=== PATIENT | female | born 1950 | race Caucasian/White ===

== ENCOUNTER 2018-01-31 08:41 | Inpatient (IN) ==
--- NOTE | 2018-01-31 08:36 | Discharge Summary ---
<Karl Stallworth - Last Filed: 01/31/18 10:09> Orders not resulted at time of discharge: Pending orders 01/31/18 00:01 XR knee RT 1-2V [XR] Routine H/H [Hemoglobin and Hematocrit] [HEME] Routine 01/31/18 07:49 US anesthesia pain block [US] Routine Date of Encounter: 01/31/18 - Hospital Course Hospital course: Ms. Prescott is a 68 year old female - Time Spent with Patient Total time spent providing and/or coordinating discharge services: - Discharge Medications Prescriptions: Acetaminophen w/Cod 300-30 mg [Tylenol w/Codeine #3] 1 each PO Q8HR 7 Days #21 tablet Aspirin Enteric Coated [Aspirin EC] 325 mg PO BID #20 tablet. Home Medications: Atorvastatin [Lipitor] 40 mg PO HS 11/25/15 [History] Furosemide [Lasix] 40 mg PO DAILY 11/25/15 [History] Lisinopril [Zestril] 20 mg PO BID 11/25/15 [History] Potassium Chloride [Klor-Con Sprinkle] 20 meq PO BID 11/25/15 [History] metFORMIN [Glucophage] 500 mg PO DAILY 11/25/15 [History] Multivit-Min/Iron/Folic/Lutein [Centrum Silver Women Tablet] 1 each PO DAILY [History] Vit C/E/Zn/Coppr/Lutein/Zeaxan [Preservision Areds 2 Softgel] 1 each PO BID [History] Aspirin Enteric Coated [Aspirin EC] 325 mg PO BID #20 tablet. 01/31/18 [Rx] Furosemide [Lasix] 20 mg PO DAILY 01/31/18 [History] Acetaminophen w/Cod 300-30 mg [Tylenol w/Codeine #3] 1 each PO Q8HR 7 Days #21 tablet 02/01/18 [Rx] Allergies/Adverse Reactions: 3 Allergy/AdvReac Type Severity Reaction Status Date / Time Sulfa (Sulfonamide Allergy Intermediate Difficulty Verified 01/31/18 09:22 Antibiotics) Breathing morphine Allergy Hives Verified 01/31/18 09:22 pentazocine [From Talwin] Allergy See Verified 01/31/18 09:22 Comments prednisone Allergy See Verified 01/31/18 09:22 Comments propoxyphene Allergy Gastrointestinal Verified 01/31/18 09:22 [From Darvocet-N] Upset sulfamethoxazole Allergy See Verified 01/31/18 09:22 [From Bactrim] Comments trimethoprim [From Bactrim] Allergy See Verified 01/31/18 09:22 Comments Primary care physician: Carmelo Poole MD - Patient Status Disposition: Home Health Service Condition: Good - Discharge Instructions Follow Up With: Carmelo Poole MD [Primary Care Provider] - Additional Instructions: Discharge Instructions: Total Knee Replacement Please call [facility] ([phone]), your Primary Care Physician, or report to the Emergency Room if you have any of the following symptoms: Nausea, vomiting, fever greater that 101.5, swelling, chest pain, shortness of breath, increased pain/redness/drainage/odor for your incision site, numbness/ tingling, or any other concerning symptoms. ACTIVITY:Weight-bearing as tolerated. You may progress off support (crutches or walker) as tolerated. Incentive Spirometer 10 times an hour. MEDICATIONS: Upon discharge resume your home medications. Take all the medications as prescribed. Take a stool softener if taking narcotic pain medications. Stool softeners are only effective if you drink enough fluids. Drink 6-8 glass of water or fluids a day, unless this is not allowed for another health problem. Despite using stool softeners, if you haven't had a bowel movement in 3 days, please switch to a gentle laxative. Gentle laxatives are sold over the counter. You should have a bowel movement within 24 hours, if not call the office. You will be discharged from the hospital with a prescription for pain medication. You are encouraged to decrease the use of narcotic pain medication as tolerated. Should you require a refill, please call the office. [facility] prescribes narcotic pain medication for only 4-6 weeks after surgery. If you require pain medication beyond this time period, you may be referred to your Primary Care Physician or to the Pain Clinic for further evaluation. Plan ahead for refills on pain medication as many narcotics either need to be picked up at the office or mailed. It is best to call 48-72 hours in advance of needing a prescription refill so you don't run out of medication. To help control the post-operative pain, you may take NSAIDs (Aleve,Advil, Motrin, Ibuprofen, Naprosyn) or Tylenol as prescribed on the bottle in addition to the pain medication. ANTICOAGULATION (blood thinners): Continue your Aspirin, Lovenox or Coumadin as prescribed to help prevent a blood clot in the leg or in the lungs. As long as your incision remains dry and you tolerate the NSAIDs (Aleve, Advil, Motrin, ibuprofen, naprosyn), it is OK to use the NSAIDS while you are taking your anticoagulation medication. Should your incision start to drain, stop the NSAID and contact our office. Common symptoms of blood clot in the legs include: localized pain, swelling, calf tenderness, redness or discoloration of the skin. Blood clot in the lung symptoms include: shortness of breath, rapid pulse, sweating, and chest pain that worsens with deep breathing, coughing up blood, lightheadedness, feelings of anxiety. If you experience any of these symptoms notify your physician immediately, go to the emergency room, or if having trouble breathing, call 911. WOUND CARE: Leave the dressing on for 7 to 10days. You may change the dressing if it becomes saturated greater than 50%. Do not get the dressing wet at anytime. Wash your hands with antibacterial soap, rinse and dry prior to any wound care. If you have paulette the visiting nurse or rehab facility can remove the stapes 10-14 days after surgery and place steri-strips across the wound. Leave the steri-strips in place until they fall off on their won. You may let water from the shower run on top of the steri-strips. If you do not have a visiting nurse or rehab facility, you will need to return to the office at 10-14 days for the paulette to be removed. If you have itching or redness around the dressing call the office. FOLLOW-UP: Please follow up with your surgeon in the orthopedic clinic in 4 weeks from the day of surgery. If you have paulette that need to be removed, you will need to come back to the office in 10-14 days from the day of surgery. <Bhavani Lopez - Last Filed: 02/01/18 17:00> - NOTES TO OUTPATIENT PROVIDER Notes to Outpatient Provider: Acute blood loss anemia - follow up CBC Orders not resulted at time of discharge: Pending orders 01/31/18 00:01 XR knee RT 1-2V [XR] Routine H/H [Hemoglobin and Hematocrit] [HEME] Routine 01/31/18 07:49 US anesthesia pain block [US] Routine Date of Encounter: 02/01/18 Time of Encounter: 16:35 - Discharge Diagnosis (1) Status post total knee replacement, right Priority: Primary Status: Acute Comments: Opsite dressing, leave intact until first post-operative visit. If dressing becomes >50% saturated, contact office, remove dressing and place appropriate dressing in its place. Do not allow for dressing to get wet. Zipline in place, plan to remove at post-operative day #14-16. Total Joint Precautions x 6 weeks Apply cold therapy wrap 3-6x/day for 20 minutes at a time. Encourage ambulation throughout the day Use Incentive spirometer 10x/hour. Elevate affected extremity above heart as tolerated. Brace: Wear knee immobilizer at night until first post-operative appt. ~ (2) Arthritis of knee, right Priority: Primary Status: Acute (3) HTN (hypertension) Priority: Secondary Status: Chronic Qualifiers: Hypertension type: essential hypertension Qualified Code(s): I10 - Essential (primary) hypertension (4) DMII (diabetes mellitus, type 2) Priority: Secondary Status: Chronic Qualifiers: Diabetes mellitus terminal operations manager insulin use: unspecified custodial insulin use status Diabetes mellitus complication status: with unspecified complications Qualified Code(s): E11.8 - Type 2 diabetes mellitus with unspecified complications (5) Acute blood loss anemia Priority: Primary Status: Acute - Hospital Course Hospital course: Ms. Prescott is a 68 year old female tatus pos R TKR 01/31 . Patient had uneventful postoperative course. Stable for discharge. Patient seen at bedside, without complaints. A&O x 3 Afebrile, vital signs stable. Vital Signs Temp Pulse Resp BP Pulse Ox 02/01/18 11:54 97.5 F L 68 16 147/67 100 02/01/18 07:51 97.9 F 87 12 120/72 95 02/01/18 03:29 97.9 F 68 17 113/67 94 02/01/18 00:51 98.4 F 81 20 135/95 100 01/31/18 20:15 97.7 F 72 17 133/70 100 01/31/18 16:50 97.5 F L 69 124/76 98 Intake and Output 02/01/18 02/01/18 02/01/18 07:59 15:59 23:59 Intake Total 240 / 240 Balance 240 / 240 Intake: Oral 240 / 240 Other: Meal Lunch Percent of Meal Consumed 100% # Voids 1 1 Blood Glucose* 227 205 Labs reviewed. H/H - stable, asymptomatic - acute blood loss anemia Short CBC 02/01/18 Range/Units 00:42 Hgb 9.4 L (11.5-15.4) g/dL Hct 27.3 L (35.3-44.9) % BMP 02/01/18 Range/Units 00:42 Sodium 137 (136-145) mEq/L Potassium 3.9 (3.5-5.1) mEq/L Chloride 105 (98-107) mEq/L Carbon Dioxide 23 (23-29) mEq/L BUN 17 (8-23) mg/dL Creatinine 0.72 (0.60-1.20) mg/dL Glucose 274 H (70-105) mg/dL Calcium 8.4 L (8.6-10.3) mg/dL Pain control: adequate - She does not wish to D/C on pain medication. Deya with codeine sent Participating in PT. All questions and concerns addressed. Educated on use of incentive spirometer. Encouraged ambulation and proper hydration. Patient educated on post-operative restrictions and post-operative care. Assessment and plan: Continue with postoperative care Discharge plan: Home with , discharge today. - Time Spent with Patient Total time spent providing and/or coordinating discharge services: Date of admission: 01/31 Primary care physician: Carmelo Poole MD Discharging clinician: Bhavani Lopez Anticipated date of discharge: 02/01/18 - Patient Status Functional capacity at discharge: uses cane/walker Overall status at discharge: patient is progressing back to baseline
--- NOTE | 2018-01-31 08:40 | Anesthesia Evaluation PreOp ---
Date of Encounter: 01/31/18 Time of Encounter: 10:03 - Past History Planned Operation: RIGHT TKA ROBOTIC Cardiac History: HTN, Hyperlipidemia, Other (LE EDEMA) Pulmonary History: Denies Any Significant HX MANAGER CONTROL History: Denies Any Significant HX Other Medical History: Other (OBESITY, BMI 34, MACULAR DEGENRATION) Anesthesia History: Past Anesthesia, Problems (PONV) Alcohol Use: none Drug use: none Medications and Allergies Atorvastatin [Lipitor] 40 mg PO HS 11/25/15 [History] Furosemide [Lasix] 40 mg PO DAILY 11/25/15 [History] Lisinopril [Zestril] 20 mg PO BID 11/25/15 [History] Potassium Chloride [Klor-Con Sprinkle] 20 meq PO BID 11/25/15 [History] metFORMIN [Glucophage] 500 mg PO DAILY 11/25/15 [History] Aspirin [Lo-Dose Aspirin EC] 81 mg PO DAILY 12/09/16 [History] Multivit-Min/Iron/Folic/Lutein [Centrum Silver Women Tablet] 1 each PO DAILY [History] Vit C/E/Zn/Coppr/Lutein/Zeaxan [Preservision Areds 2 Softgel] 1 each PO BID [History] Furosemide [Lasix] 20 mg PO DAILY 01/31/18 [History] 3 Allergy/AdvReac Type Severity Reaction Status Date / Time Sulfa (Sulfonamide Allergy Intermediate Difficulty Verified 01/31/18 09:22 Antibiotics) Breathing morphine Allergy Hives Verified 01/31/18 09:22 pentazocine [From Talwin] Allergy See Verified 01/31/18 09:22 Comments prednisone Allergy See Verified 01/31/18 09:22 Comments propoxyphene Allergy Gastrointestinal Verified 01/31/18 09:22 [From Darvocet-N] Upset sulfamethoxazole Allergy See Verified 01/31/18 09:22 [From Bactrim] Comments trimethoprim [From Bactrim] Allergy See Verified 01/31/18 09:22 Comments - Meds/Allergy Pre-op Review Medications Reviewed: Yes Allergies Reviewed: Yes Beta Blockers on Current Med List: No Anesthesia Results - Labs Laboratory Last Values WBC 7.4 K/mcL (4.3-11.1) 01/24/18 10:02 RBC 4.72 M/mcL (3.82-4.97) 01/24/18 10:02 Hgb 13.5 g/dL (11.5-15.4) 01/24/18 10:02 Hct 42.0 % (35.3-44.9) 01/24/18 10:02 MCV 89.0 fL (83.0-100.0) 01/24/18 10:02 MCH 28.6 pg (28.0-33.3) 01/24/18 10:02 MCHC 32.1 g/dL (31.6-35.5) 01/24/18 10:02 RDW 12.0 % (11.5-14.5) 01/24/18 10:02 Plt Count 257 K/mcL (140-400) 01/24/18 10:02 MPV 9.8 fL (9.4-12.4) 01/24/18 10:02 Immature Gran % 0.3 % (0-4) 01/24/18 10:02 Seg Neutrophils % 62.8 % 01/24/18 10:02 Lymphocytes % 26.6 % 01/24/18 10:02 Monocytes % 6.9 % 01/24/18 10:02 Eosinophils % 2.3 % 01/24/18 10:02 Basophils % 1.1 % 01/24/18 10:02 Neutrophils # 4.6 K/mcL (1.6-8.9) 01/24/18 10:02 Lymphocytes # 2.0 K/mcL (0.6-4.6) 01/24/18 10:02 Monocytes # 0.5 K/mcL (0.0-1.3) 01/24/18 10:02 Eosinophils # 0.2 K/mcL (0.0-0.6) 01/24/18 10:02 Basophils # 0.1 K/mcL (0.0-0.2) 01/24/18 10:02 PT 11.2 Seconds (9.4-12.1) 01/24/18 10:02 INR 1.0 01/24/18 10:02 APTT 31.7 Seconds (26.0-36.0) 01/24/18 10:02 Sodium 137 mEq/L (136-145) 01/24/18 10:02 Potassium 4.4 mEq/L (3.5-5.1) 01/24/18 10:02 Chloride 101 mEq/L (98-107) 01/24/18 10:02 Carbon Dioxide 30 mEq/L (23-29) H 01/24/18 10:02 BUN 16 mg/dL (8-23) 01/24/18 10:02 Creatinine 0.76 mg/dL (0.60-1.20) 01/24/18 10:02 Est GFR ( Amer) > 60 (> 60) 01/24/18 10:02 Est GFR (Non-Af Amer) > 60 (> 60) 01/24/18 10:02 BUN/Creatinine Ratio 21 (6-26) 01/24/18 10:02 Est Mean Plasma Glucose 166 mg/dl 01/24/18 10:02 Hemoglobin A1c 7.4 % (-5.6) H 01/24/18 10:02 - Imaging EKG: report reviewed (SINUS RHYTHM VOLTAGE CRITERIA FOR LVH MINIMAL ST DEPRESSION) Anesthesia Exam O2 Sat Height 1.6 m Height 1.6 m Height 1.6 m Weight 87.09 kg Weight 87.09 kg Weight 87.09 kg O2 Sat by Pulse Oximetry 98 Vital Signs Temp Pulse Resp BP Pulse Ox 98.0 F 82 18 174/82 98 01/31/18 08:57 01/31/18 08:57 01/31/18 08:57 01/31/18 08:57 01/31/18 08:57 - HEENT Mallampati: I Teeth: Normal Oral Opening: Greater than 3 - Cardiac Rhythm: Regular - Pulmonary Breath Sounds: bilateral Clear Respiratory Effort: Symmetrical Anesthesia Assess/Plan ASA Score: 3 Modified Cushing Scale for Level of Consciousness: Cooperative, oriented, and tranquil Anesthetic Plan: General, Regional (FOR POST OPERATIVE PAIN) Monitoring Plan: Standard Monitors Recovery Plan: PACU Anes Supervising Prov Stmt: [email or web address] LIST NOT UPDATED THIS VISIT PATIENT'S CHART AND CURRENT MEDICATIONS REVIEWED CURRENT MEDICATIONS: Lisinopril 20 MG Tablet, Si tablet Orally 1 & 1/2 in am and 1 in the pm Aspir-81 81 MG Tablet Delayed Release, Si tablet Orally Once a day Atorvastatin Calcium 40 MG Tablet, Si tablet Orally Once a day Metformin HCl 500 MG Tablet, Si Tablet Orally Once a day Avastin 100 MG/4ML Solution, Sig: Intravenous Furosemide 20 MG Tablet, Si tablet Orally Once a day at 2pm Furosemide 40 MG Tablet, Si tablet Orally Once a day Klor-Con 10 10 meq Tablet Extended Release, Si tablet Orally Four times a day Patient informed and consented. Risks, benefits, and alternatives discussed. PATIENT DECLINED SAB.
[2018-01-31] MEDS ORDERED: CeFAZolin Syr 2,000MG/20 ML 2,000 MG/20 ML SYRINGE IVPB ONE (09:02)
[2018-01-31] MEDS ORDERED: Ringers Solution, Lactated 1,000 ML IVC SCH ×2 (09:15→13:17)
[2018-01-31] MEDS ORDERED: *HR* Midazolam HCl 2 MG/2 ML VIAL ONE (09:49)
[2018-01-31] MEDS ORDERED: *HR* FentaNYL (PF) 100 MCG/2 ML VIAL ONE (09:49)
[2018-01-31] MEDS ORDERED: *HR* Propofol 200 MG/20 ML VIAL IVP ONE (09:49)
[2018-01-31] MEDS ORDERED: Lidocaine -MPF 2% 2 ML VIAL ONE (09:52)
[2018-01-31] MEDS ORDERED: *HR* HYDROmorphone (PF) 1 MG/ML SYRINGE IVP PRN (09:54)
[2018-01-31] MEDS ORDERED: *HR* Promethazine 25 MG/ML VIAL IVP PRN (09:54)
[2018-01-31] MEDS ORDERED: *HR* Labetalol 20 MG/4 ML SYRINGE IVP PRN (09:54)
[2018-01-31] MEDS ORDERED: *HR* OxyCODONE Immed Rel 5 MG TABLET PO PRN ×2 (09:54→13:17)
[2018-01-31] MEDS ORDERED: Acetaminophen IV 1,000 MG/100 ML INFUS..BTL IVPB ONE (10:06)
[2018-01-31] MEDS ORDERED: Scopolamine Patch 1.5 MG PATCH.TD72 TD ONE (10:06)
--- NOTE | 2018-01-31 10:09 | History & Physical Report ---
Date of Encounter: 01/31/18 Time of Encounter: 10:08 24 Hour HP Update - Instructions Instructions: If the History and Physical is less than 30 days old and was completed prior to A.M. admission and or procedure and has NOT been updated on calendar day of procedure please complete this update prior to performing procedure. - Update Patient reports changes in Medical Condition: No Changes in examination, assessment, or condition: No Changes in Medication: No Preop tests/diagnostics Reviewed: Yes Surgery Remains Indicated: Yes Consent for Planned Operative Procedure(s) Verified: Yes - Pre-Operative Checklist Preoperative Checklist Indicated: No Prophylactic Antibiotic Ordered: Yes Is VTE Prophylaxis Indicated?: Yes
[2018-01-31] MEDS ORDERED: Ethanol\\Acetic Acid\\Na Ace\\Ben 1,000 ML IRRIG.SOLN IR ONE (10:22)
[2018-01-31] MEDS ORDERED: KETAMINE HCL 50 MG/ML SYRINGE IV ONE (10:30)
[2018-01-31] MEDS ORDERED: ROPIVACAINE HCL/PF 0.5% 30 ML VIAL ONE (10:30)
--- NOTE | 2018-01-31 10:50 | Anesthesia Procedures ---
Date of Encounter: 01/31/18 Time of Encounter: 10:48 Procedures: Anesthesia - Nerve Block Procedure Date: 01/31/18 Time: 10:48 Allergies/Adv Reactions: see emr Pre-op Diagnosis: right knee oa Surgical Procedure: right tka robo Checklist: Correct Patient Identifier, Correct procedure, History checked (a) Correct side: Right Blood Thinner: No Monitor Applied: EKG, BP, Pulse Oximetry Supplemental Oxygen via Nasal Cannula (L/min): 2 Sedation: Versed (mg): 2 Sedation: Fentanyl (mcg): 100 Indication: Post Op Analgesia Pre-op Neuro Deficits: No Block Type: Other (adductor canal, ) Catheter placed: No Sterile Technique: Yes Ultrasound used: Yes Anatomy identified: Yes Visual spread of Local: Yes Neuro Stimulation: No Blood on Needle Aspiration: No Smooth Injection of Local: Yes Pain with Injection of Local: No Prep: Chlorhexadine Needle: 21 x 100 mm Stimuplex Local: Ropivacaine, Other Volume (cc): 60 Number of Attempts: 1 Complications: None/effective block Vitals: Vital Signs/O2 Sat/Glucose, Most Recent Temp Pulse Resp BP Pulse Ox 98.0 F 69 13 171/82 100 01/31/18 08:57 01/31/18 10:44 01/31/18 10:44 01/31/18 10:44 01/31/18 10:44 Blood Glucose* 150
[2018-01-31] MEDS ORDERED: *HR* HYDROmorphone 2 MG/ML SYRINGE ONE (10:52)
[2018-01-31] MEDS ORDERED: Ondansetron 4 MG/2 ML VIAL ONE (11:04)
[2018-01-31] MEDS ORDERED: *HR* Succinylcholine 200 MG/10 ML VIAL IVP ONE (11:37)
[2018-01-31] MEDS ORDERED: Dexamethasone 4 MG/ML VIAL ONE (11:37)
[2018-01-31] MEDS ORDERED: Ketorolac 30 MG/ML VIAL ONE (11:39)
[2018-01-31] MEDS ORDERED: *HR* Magnesium Sulfate 1 GM/2 ML VIAL ONE (11:44)
--- NOTE | 2018-01-31 12:05 | Orthopedic Operative Note ---
Date of procedure: 01/31/18 Pre-op diagnosis: right knee arthritis Post-op diagnosis: same Procedure: Procedure:right robotic-assisted Total knee replacement Estimated blood loss: 200 cc Hardware: Metal and polyethylene replacement. [place] Femur: 4 Tibia: 4 TS insert: 11 Patella:39 Exam Under anesthesia: 4 degree flexion contracture, 5 degree varus as calculated by the robot full flexion and no instability Procedural Notes: Grade 4 arthritic changes all 3 components. Operative procedure: The patient was brought to the operating room and placed on the operating room table. After general anesthesia was administered the operative knee was examined. Findings were noted in the exam under anesthesia. The operative extremity was prepped and draped in sterile surgical fashion. The patient received IV antibiotics prior to skin incision. A standard midline incision was made centered over the patella. The incision was made through the skin and subcutaneous tissue. A medial parapatellar tendon approach was performed. Care was taken to preserve tissue along the medial aspect of the patella. And to protect the patella tendon. The deep MCL was released off the medial tibia. The infra patella fat pad was excised. The patella was everted and cut was made at the level of the insertion of the quadriceps and patella tendon. The patella was sized the guide was seated and the lug holes are drilled. Knee was brought into flexion. Patient noted to have grade 4 arthritic changes all 3 compartments. Steinmann pins were placed in the tibia and the femur for the tibial and femoral arrays respectively. Checkpoints were also placed in the tibia and the femur for calculation purposes. The knee including the femur and the tibial registered. Osteophytes, ACL and PCL were excised at this point. Extension and flexion were assessed with a valgus stress components were adjusted on the computer to balance the knee. Femoral cuts were made first with robotic assistance, these included the anterior cut posterior cuts chamfer cuts. Tibial cut was then performed with robotic assistance as well. Bone fragments were removed, as well as the medial and lateral meniscus. The size 4 femoral guide was seated box cut was made lug holes are drilled. The size 4 tibial tray was seated and prepared with the fin cutter. Trial reduction with the 11 TS Susana revealed extension of 0 degree and 3 degree varus full flexion. No varus valgus instability. Trial reduction revealed excellent patella tracking. All trial components were removed all bony surfaces were irrigated. The Tibia was seated followed by the femur, The selected Susana size was seated and secured patella. Patient had similar findings for motion and stability. The knee was closed by the PA. The knee was then irrigated out with 2 L of pulse irrigation. The extensor mechanism was closed with #2 FiberWire suture and #2 PDS suture. The subcutaneous tissue was then irrigated and closed deep with #1 PDS suture superficially with 0 PDS suture and skin was closed with zip tie The patient was then placed in a sterile dressing and a postoperative brace extubated and transferred to recovery room in stable condition. Anesthesia: GETA Surgeon: Karl Satllworth Was there an clinic office assistant present: Yes Qualitative Executive Researcher: Bhavani Lopez Estimated blood loss (cc): 200 Condition: stable Disposition: PACU
--- NOTE | 2018-01-31 12:56 | Anesthesia Evaluation Post Op ---
Date of Encounter: 01/31/18 Time of Encounter: 12:55 - Vital Signs Vital Signs: Vital Signs Temperature 98.0 F 01/31/18 08:57 Pulse Rate 82 01/31/18 08:57 Respiratory Rate 18 01/31/18 08:57 Blood Pressure 174/82 01/31/18 08:57 O2 Sat by Pulse Oximetry 98 01/31/18 08:57 Temperature 97.3 F L 01/31/18 12:32 Pulse Rate 73 01/31/18 12:42 Respiratory Rate 16 01/31/18 12:42 Blood Pressure 170/88 01/31/18 12:42 O2 Sat by Pulse Oximetry 98 01/31/18 12:42 at baseline vital signs - Lungs Lungs: Clear Ascult./Percussion - Airway Airway: Non-obstructed - Cardiovascular Regular Rate, Baseline Rhythm - Mental Status Mental Status: Alert & Oriented, Answers Appropriately - Pain Pain Scale: 0 Pain Scale used: Numeric (1 - 10) - Nausea Vomiting Nausea Vomiting: Not Present - Hydration Hydration: Ice chips - Discharge PostOp Status: Transfer Patient to floor
[2018-01-31] MEDS ORDERED: Sennosides 8.6 MG TABLET PO PRN (13:17)
[2018-01-31] MEDS ORDERED: traMADol 50 MG TABLET PO PRN (13:17)
[2018-01-31] MEDS ORDERED: Naloxone 0.4 MG/ML INJ IVP PRN (13:17)
[2018-01-31] MEDS ORDERED: Dextrose Gel 15 GM/37.5 ML TUBE PO PRN ×2 (13:17)
[2018-01-31] MEDS ORDERED: Temazepam 15 MG CAPSULE PO PRN (13:17)
[2018-01-31] MEDS ORDERED: D5% in Water 1,000 ML IVC PRN (13:17)
[2018-01-31] MEDS ORDERED: *HR* OxyCODONE/APAP 5/325 TABLET PO PRN (13:17)
[2018-01-31] MEDS ORDERED: Ondansetron 4 MG/2 ML VIAL IVP PRN (13:17)
[2018-01-31] MEDS ORDERED: MOM Conc 10 ML UD.LIQ PO PRN (13:17)
[2018-01-31] MEDS ORDERED: *HR* Dextrose 50 % in Water (Syg) 50 ML SYRINGE IVP PRN (13:17)
[2018-01-31 13:30] LABS: Hematocrit 32.5 % (35.3-44.9); Hemoglobin 10.8 g/dL (11.5-15.4)
[2018-01-31] MEDS: Insulin LISPRO 300 UNITS/3 ML VIAL SQ SCH ×2 (13:52→16:33)
[2018-01-31] MEDS ORDERED: Furosemide 20 MG TABLET PO SCH (14:00)
[2018-01-31] MEDS: *HR* Enoxaparin 30 MG/0.3 ML SYRINGE SQ SCH (16:30)
[2018-01-31] MEDS ORDERED: *HR* Enoxaparin 30 MG/0.3 ML SYRINGE SQ SCH (18:00)
[2018-01-31] MEDS: (Vit C/E/Zn/Coppr/Lutein/Zeaxan [Preservision Areds 2) PO SCH (19:48)
[2018-01-31] MEDS: Lisinopril 20 MG TABLET PO SCH (19:48)
[2018-01-31] MEDS ORDERED: Insulin LISPRO 300 UNITS/3 ML VIAL SQ SCH (21:00)
[2018-01-31] MEDS ORDERED: Acetaminophen IV 1,000 MG/100 ML INFUS..BTL IVPB PRN (21:15)
[2018-01-31] MEDS ORDERED: Ketorolac 30 MG/ML VIAL IM PRN (21:16)
[2018-01-31] MEDS: Ketorolac 30 MG/ML VIAL IVP PRN (22:40)
[2018-02-01 01:00] LABS: Hematocrit 27.3 % (35.3-44.9); Hemoglobin 9.4 g/dL (11.5-15.4)
[2018-02-01 01:22] LABS: BUN/Creatinine Ratio 24 (6-26); Blood Urea Nitrogen 17 mg/dL (8-23); Calcium 8.4 mg/dL (8.6-10.3); Carbon Dioxide 23 mEq/L (23-29); Chloride 105 mEq/L (98-107); Glucose 274 mg/dL (70-105); Osmolality,Calculated 295 (280-300); Potassium 3.9 mEq/L (3.5-5.1); Sodium 137 mEq/L (136-145); eGFR For Non-African Americans > 60 (> 60)
[2018-02-01] MEDS: *HR* Enoxaparin 30 MG/0.3 ML SYRINGE SQ SCH (06:00)
[2018-02-01] MEDS: Ketorolac 30 MG/ML VIAL IVP PRN (06:06)
--- NOTE | 2018-02-01 07:56 | Orthopedics Progress Note ---
Date of Encounter: 02/01/18 Time of Encounter: 07:56 - Assessment and Plan (1) Acute blood loss anemia Current Visit: Yes Status: Acute Subjective Interval history: Patient was seen this morning doing well without complaints. Afebrile vital signs stable. Operative extremity: Neurovascularly intact Dressing clean dry and intact Calves nontender Assessment and plan: Continue with postoperative care Objective Vital signs: Vital Signs Temp Pulse Resp BP Pulse Ox 02/01/18 07:51 97.9 F 87 12 120/72 95 02/01/18 03:29 97.9 F 68 17 113/67 94 02/01/18 00:51 98.4 F 81 20 135/95 100 01/31/18 20:15 97.7 F 72 17 133/70 100 01/31/18 16:50 97.5 F L 69 124/76 98 01/31/18 14:32 64 147/88 98 01/31/18 13:50 61 16 142/83 97 01/31/18 13:31 97.5 F L 62 16 161/74 99 01/31/18 13:02 97.4 F L 64 16 163/78 97 01/31/18 12:52 58 16 168/88 98 01/31/18 12:42 73 16 170/88 98 01/31/18 12:32 97.3 F L 84 20 182/90 95 01/31/18 10:44 69 13 171/82 100 01/31/18 10:29 73 16 165/87 100 01/31/18 08:57 98.0 F 82 18 174/82 98 Intake and Output 01/31/18 01/31/18 02/01/18 15:59 23:59 07:59 Intake Total 120 / 120 400 / 400 Output Total 200 / 200 200 / 200 Balance -80 / -80 200 / 200 Intake: IV Fluids 120 / 120 100 / 100 Ofirmev 1,000 mg/100 ml 1,000 100 / 100 mg In 100 ml @ 400 mls/hr IVPB ONCE ONE Rx#:[id number] Ancef Syringe 2,000 MG/20 ML 2, 20 / 20 000 mg In 20 ml @ 200 mls/hr IVPB PREOP ONE Rx#:[id number] Ancef 2,000 MG In 0.9 % Sodium 100 / 100 Chloride 100 ML @ 200 mls/hr IVPB Q8HR [facility] Rx#:[id number] Oral 300 / 300 Output: Urine 200 / 200 Estimated Blood Loss 200 / 200 Other: Meal Dinner Percent of Meal Consumed 75% # Voids 1 1 Weight 87.09 kg Blood Glucose* 188 369 227 - Labs CBC & BMP: 02/01/18 00:42 02/01/18 00:42 Labs: Abnormal lab results Hgb 9.4 g/dL (11.5-15.4) L 02/01/18 00:42 Hct 27.3 % (35.3-44.9) L 02/01/18 00:42 Glucose 274 mg/dL (70-105) H 02/01/18 00:42 POC Glucose 369 mg/dL (70-99) H 01/31/18 20:06 Calcium 8.4 mg/dL (8.6-10.3) L 02/01/18 00:42 - VTE Documentation of Mechanical Device: Venous foot pump, device Consult Discharge Plan - Plan Referrals: Carmelo Poole MD [Primary Care Provider] - Prescriptions: Aspirin Enteric Coated [Aspirin EC] 325 mg PO BID #20 tablet.dr [email or web address] Immed Rel [Roxicodone 5 MG] 5 mg PO Q6H PRN 7 Days #28 tablet PRN Reason: Severe pain 7-10
[2018-02-01] MEDS: (Vit C/E/Zn/Coppr/Lutein/Zeaxan [Preservision Areds 2) PO SCH (08:17)
[2018-02-01] MEDS: Lisinopril 20 MG TABLET PO SCH (08:17)
[2018-02-01] MEDS: Insulin LISPRO 300 UNITS/3 ML VIAL SQ SCH ×2 (08:22→12:12)
[2018-02-01] MEDS ORDERED: *HR* Metformin 500 MG TABLET PO SCH (09:00)
[2018-02-01] MEDS ORDERED: Multivit/Ca/Min/Fe/FA 1 TAB TABLET PO SCH (09:00)
[2018-02-01] MEDS ORDERED: Aspirin Enteric Coated 81 MG Tablet PO SCH (09:00)
[2018-02-01] MEDS ORDERED: Furosemide 40 MG TABLET PO SCH (09:00)
[2018-02-01 11:55] VITALS: BP 147/67
--- NOTE | 2018-02-01 17:05 | Physician Discharge Referral ---
Home Health/Hosp Referral Info Transfer to: Home Health Provider in Charge Post Discharge: PCP - Diagnosis (1) Status post total knee replacement, right Priority: Primary Status: Acute (2) Arthritis of knee, right Priority: Primary Status: Acute (3) HTN (hypertension) Priority: Secondary Status: Chronic (4) DMII (diabetes mellitus, type 2) Priority: Secondary Status: Chronic (5) Acute blood loss anemia Priority: Secondary Status: Acute - Respiratory Orders None Smoking Cessation: Smoking cessation has been advised. For more information, call the [place] Tobacco Quit Line at 1-611-WANF-NOW. - Diet/Nutrition Diet/Nutrition Orders: Regular - Activity Activity Orders: Up ad gaby, Ambulate, Walker - Services Needed Following services are medically necessary services: Nursing, Home Health Aide, Physical Therapy, Occupational Therapy Home Care Orders: Opsite dressing, leave intact until first post-operative visit. If dressing becomes >50% saturated, contact office, remove dressing and place appropriate dressing in its place. Do not allow for dressing to get wet. Zipline in place, plan to remove at post-operative day #14-16. Total Joint Precautions x 6 weeks Apply cold therapy wrap 3-6x/day for 20 minutes at a time. Encourage ambulation throughout the day Use Incentive spirometer 10x/hour. Elevate affected extremity above heart as tolerated. Brace: Wear knee immobilizer at night until first post-operative appt Repeat H/H in AM and fax results to [facility] - Transfer Medications Prescriptions: Acetaminophen w/Cod 300-30 mg [Tylenol w/Codeine #3] 1 each PO Q8HR 7 Days #21 tablet Aspirin Enteric Coated [Aspirin EC] 325 mg PO BID #20 tablet.dr Home Medications: Atorvastatin [Lipitor] 40 mg PO HS 11/25/15 [History] Furosemide [Lasix] 40 mg PO DAILY 11/25/15 [History] Lisinopril [Zestril] 20 mg PO BID 11/25/15 [History] Potassium Chloride [Klor-Con Sprinkle] 20 meq PO BID 11/25/15 [History] metFORMIN [Glucophage] 500 mg PO DAILY 11/25/15 [History] Multivit-Min/Iron/Folic/Lutein [Centrum Silver Women Tablet] 1 each PO DAILY [History] Vit C/E/Zn/Coppr/Lutein/Zeaxan [Preservision Areds 2 Softgel] 1 each PO BID [History] Aspirin Enteric Coated [Aspirin EC] 325 mg PO BID #20 tablet. 01/31/18 [Rx] Furosemide [Lasix] 20 mg PO DAILY 01/31/18 [History] Acetaminophen w/Cod 300-30 mg [Tylenol w/Codeine #3] 1 each PO Q8HR 7 Days #21 tablet 02/01/18 [Rx] Allergies/Adverse Reactions: 3 Allergy/AdvReac Type Severity Reaction Status Date / Time Sulfa (Sulfonamide Allergy Intermediate Difficulty Verified 01/31/18 09:22 Antibiotics) Breathing morphine Allergy Hives Verified 01/31/18 09:22 pentazocine [From Talwin] Allergy See Verified 01/31/18 09:22 Comments prednisone Allergy See Verified 01/31/18 09:22 Comments propoxyphene Allergy Gastrointestinal Verified 01/31/18 09:22 [From Darvocet-N] Upset sulfamethoxazole Allergy See Verified 01/31/18 09:22 [From Bactrim] Comments trimethoprim [From Bactrim] Allergy See Verified 01/31/18 09:22 Comments Certification: Further, I certify that my clinical findings support that this patient is homebound (i.e. absences from home require considerable and taxing effort and are for medical reasons or synagogue services or infrequently or short duration when for other reasons) because: Homebound Reason: Post-surgery restriction and or conditions limit ability to leave home Attestation: My signature below is to certify that this patient is under my care and that I, or nurse practitioner, or a physician's server assistant working with me, has a face-to -face encounter with this patient.
== END 2018-02-01 14:34 | disposition home health service (06) | DRG 470 ==
LOC: SAMDAY 08:41 → 3NENU 13:05
PROVIDERS: ADMIT Orthopaedic Surgery; ATTEND Orthopaedic Surgery